=== PATIENT | female | born 1985 | race Caucasian/White ===

== ENCOUNTER 2017-07-05 13:08 | Emergency (ER) | payer OTHER ==
[~2017-07-05] VITALS: Ht 162.6 cm; Wt 90.3 kg
[2017-07-05] MEDS ORDERED: ALBU8TAB INH (13:23)
--- NOTE | 2017-07-05 13:32 | NUR ---
PT IS IN ROOM #2A. DR VIRAMONTES EVALUATED THE PT.
[2017-07-05 14:47] LABS: CREATININE 0.6 mg/dL (0.6-1.3); POTASSIUM 4.2 mmol/L (3.5-5.1)
[2017-07-05 14:50] LABS: BASOPHILS # (AUTO) 0.1 K/uL (0.0-8.0); BASOPHILS % (AUTO) 0.7 % (0.0-2.0); EOSINOPHILS # (AUTO) 0.1 K/uL (0.0-0.7); HEMATOCRIT 36.7 % (37-47); LYMPHOCYTES % (AUTO) 18.5 % (20.5-51.5); MEAN CORPUSCULAR HEMOGLOBIN 27.3 UUG (27.0-31.0); MEAN CORPUSCULAR HGB CONC 33 g/dL (32.0-37.0); MEAN CORPUSCULAR VOLUME 83.5 FL (81.0-99.0); MONOCYTES # (AUTO) 0.5 K/UL (0.1-1.30); MONOCYTES % (AUTO) 4.9 % (0.0-11.0); NEUTROPHILS # (AUTO) 8.2 K/UL (1.8-8.9); NEUTROPHILS % (AUTO) 74.9 % (38.5-71.5); PLATELET COUNT (AUTO) 387 K/UL (150-450); RED BLOOD CELL COUNT(AUTO) 4.39 MIL/UL (4.2-5.4); WHITE BLOOD COUNT (AUTO) 10.9 K/UL (4.0-11.2)
[2017-07-05 14:59] LABS: BILIRUBIN,DIRECT 0.1 mg/dL (0.0-0.2); BILIRUBIN,TOTAL 0.4 mg/dL (0.2-1.0); TOTAL PROTEIN, SERUM 7.7 g/dL (6.4-8.2)
--- NOTE | 2017-07-05 16:55 | NUR ---
PT WAS D/C TO HOME. D/C INSTRUCTIONS GIVEN TO THE PT.
[2017-07-05 16:57] VITALS: BP 132/79
== END 2017-07-05 16:58 | disposition home or self-care (01) ==
LOC: ER 13:08
DX: R00.2 Palpitations (principal); J45.909 Unspecified asthma, uncomplicated
CPT/HCPCS: 36415; 70030-TC; 71010; 84703; 85025; 85730; 93005; A4663; J7030